=== PATIENT | male | born 1990 | race African-American/Black ===

== ENCOUNTER 2016-11-06 17:26 | Emergency (ER) | payer SELFPAY ==
[~2016-11-06] VITALS: Ht 175.3 cm; Wt 82.9 kg
[2016-11-06] MEDS ORDERED: KEFLEX500 MG PO (19:47)
[2016-11-06] MEDS ORDERED: BACTRIM,SEPT1 TABLET PO (19:47)
[2016-11-06 21:26] VITALS: BP 116/78
== END 2016-11-06 21:36 | disposition home or self-care (01) ==
LOC: EME 17:26
PROC: 0H9GXZZ Drainage of Left Hand Skin, External Approach (ICD-10-PCS; principal; 2016-11-06)
DX: L02.512 Cutaneous abscess of left hand (principal); L03.012 Cellulitis of left finger; F17.200 Nicotine dependence, unspecified, uncomplicated
CPT/HCPCS: 73130; 99281; 99284; S0020